=== PATIENT | male | born 1995 | race Caucasian/White ===

== ENCOUNTER 2018-07-23 09:12 | Outpatient (CLI) | payer OTHER, SELFPAY ==
[2018-07-23 09:51] LABS: Abs Immature Grans 0.02 k/cumm (0.0-0.09); Absolute Basophil Count 0.04 k/cumm (0.0-0.2); Absolute Eosinophil Count 0.12 k/cumm (0.0-0.7); Absolute Lymphocyte Count 1.66 k/cumm (1.2-3.4); Absolute Monocyte Count 0.62 k/cumm (0.11-0.7); Absolute Neutrophil Count 4.33 k/cumm (1.2-6.7); Basophils % 0.6; Eosinophils % 1.8; HCT 45.4 % (40.0-50.0); HGB 15.7 g/dL (13.5-17.5); Immature Grans % 0.3; Lymphocytes % 24.4; Mean Corp. HGB Concentration 34.6 g/dL (32.0-36.0); Mean Corpuscular Hemoglobin 30.3 pg (27.0-33.0); Mean Corpuscular Volume 87.6 fL (80-95); Mean Platelet Volume 9.1 fL (8.0-11.0); Monocytes % 9.1; Neutrophils % 63.8; Platelet Count 277 x1000/uL (130-400); RBC 5.18 m/cumm (4.50-6.00); RBC Distribution Width 12.2 % (11.8-14.1); White Blood Cell Count 6.79 k/cumm (4.4-10.8)
[2018-07-23 11:26] LABS: ALT 27 U/L (12-78); AST 16 U/L (15-37); Albumin 4.2 g/dL (3.4-5.0); Alkaline Phosphatase 80 U/L (46-116); Anion Gap 9.6 mmol/L (3-11); BUN 13 mg/dL (7-18); Bilirubin, Total 0.5 mg/dL (0.2-1.0); CO2 28.4 mmol/L (21.0-32.0); CREATININE 0.89 mg/dL (0.70-1.30); Calcium 9.4 mg/dL (8.5-10.1); Chloride 102 mmol/L (98-107); Cholesterol 192 mg/dL (50-200); Glucose 94 mg/dL (70-100); HDL Cholesterol 59 mg/dL (40-60); LDL CHOLESTEROL 116 mg/dL (<100); Potassium 4.5 mmol/L (3.5-5.1); Sodium 140 mmol/L (136-145); TSH (W/Ref FT4) 0.89 uIU/mL (0.358-3.74); Total Protein 7.7 g/dL (6.4-8.2); Triglyceride 41 mg/dL (30-150)
[2018-07-25 06:21] LABS: Vitamin D 25 Total 22.9 ng/ml (30-100)
== END 2018-07-23 09:32 ==
PROVIDERS: PCP Pediatrics; Visit Provider Psychiatry & Neurology Psychiatry
DX: F10.10 Alcohol abuse, uncomplicated (principal)
CPT/HCPCS: 36415; 80053; 80061; 82306; 83721; 84443; 85025